=== PATIENT | female | born 1980 | race African-American/Black ===

== ENCOUNTER 2023-04-07 11:30 | Emergency (ER) | payer OTHER ==
[~2023-04-07] VITALS: Ht 162.6 cm; Wt 73.9 kg
[2023-04-07 12:00] VITALS: BP 133/69; PULSE 105; RESP 18; O2SAT 100
== END 2023-04-07 17:51 | disposition left against medical advice (07) ==
LOC: ER 11:30
DX: N76.0 Acute vaginitis (principal); Z53.21 Procedure and treatment not carried out due to patient leaving prior to being seen by health care provider

== ENCOUNTER 2023-04-08 22:46 | Emergency (ER) | payer OTHER ==
[~2023-04-08] VITALS: Ht 162.6 cm; Wt 75.5 kg
[2023-04-09 00:15] LABS: Basophils # (auto) 0.1 10 ^3/uL (0-0.2); Basophils % (auto) 0.7 % (0.0-2.0); Eosinophils # (auto) 0.1 10 ^3/uL (0-0.8); Eosinophils % (auto) 0.7 % (0.0-7.0); Hematocrit 27.1 % (36.0-46.0); Hemoglobin 8.1 g/dL (12.2-16.2); Lymphocytes # (auto) 2.5 10 ^3/uL (0.4-5.4); Lymphocytes % (auto) 32.5 % (10.0-50.0); Mean Corpuscular Hemoglobin 18.3 pg (28.0-32.0); Mean Corpuscular Hgb Conc. 29.8 g/dL (32.0-36.0); Mean Corpuscular Volume 61.3 fL (80.0-100.0); Monocytes # (auto) 0.6 10 ^3/uL (0-1.3); Monocytes % (auto) 8.4 % (0.0-12.0); Neutrophils # (auto) 4.4 10 ^3/uL (1.6-8.6); Neutrophils % (auto) 57.7 % (37.0-80.0); Nucleated Red Blood Cells % 0.5 %; Red Blood Cells 4.42 10^6/uL (4.0-5.20); White Blood Cell 7.7 10^3/uL (4.4-10.8)
[2023-04-09 00:32] LABS: Albumin 3.4 g/dL (3.4-5.0); BUN/Creatinine Ratio 10.8 (10.0-20.0); Calcium 8.9 mg/dL (8.5-10.1); Potassium 3.4 mmol/L (3.5-5.1)
[2023-04-09 00:39] LABS: Bilirubin, Total 0.2 mg/dL (0.2-1.0); Total Protein 7.6 g/dL (6.4-8.2)
[2023-04-09 00:42] LABS: Red Cell Distribution Width 22.3 % (11.8-14.3)
[2023-04-09 05:06] VITALS: BP 144/86; TEMP 98.4
[2023-04-09 06:30] VITALS: PULSE 78; RESP 16; O2SAT 100
== END 2023-04-09 06:35 | disposition home or self-care (01) ==
LOC: ER 22:46
DX: N81.4 Uterovaginal prolapse, unspecified (principal)
CPT/HCPCS: 36415; 74176; 80053; 85025; 86850; 86900; 86901